=== PATIENT | female | born 1950 | race Hispanic/Latino ===

== ENCOUNTER 2017-03-04 18:40 | Emergency (ER) | payer MEDICARE ==
[2017-03-04 19:40] VITALS: RESP 16
--- NOTE | 2017-03-04 20:18 | ED PDOC ---
HPI: SOB/CHF/COPD Time Seen by Provider: 03/04/17 19:18 Chief Complaint (Nursing): Shortness Of Breath Chief Complaint (Provider): Shortness of Breath/Leg Swelling History Per: Patient History/Exam Limitations: no limitations Onset/Duration Of Symptoms: Days (1) Current Symptoms Are (Timing): Still Present Quality: "Pain" Associated Symptoms: Ankle/Leg Swelling Additional Complaint(s): Oswaldo Oconnell is a 66 y/o female, with a past medical history of anxiety and opiate addiction (currently enrolled in a Methadone clinic), presenting to the ER on 03/04/2017 wit bilateral leg swelling x1 day. Patient reports noticing her legs swell earlier today associated with intermittent shortness of breath and anxiety. She was advised by her Methadone clinic to have her kidneys evaluated for an unknown reason to her. Patient states she saw her primary doctor, Dr. Nguyen, who provided her with prescriptions for blood work which she never got performed. Past Medical History Reviewed: Historical Data, Nursing Documentation, Vital Signs Vital Signs: Last Vital Signs Temp 98.1 F 03/04/17 19:06 Pulse 113 H 03/04/17 19:06 Resp 16 03/04/17 19:39 BP 125/64 03/04/17 19:06 Pulse Ox 98 03/04/17 21:55 - Medical History PMH: Anxiety, Migraine, Seizures (last seizure 15 years ago) Denies: CAD - Surgical History Other surgeries: Exploratory Laproscopy - Family History Family History: States: Unknown Family Hx - Social History Current smoker - smoking cessation education provided: No Alcohol: None Drugs: Opiates ((+) former opiate addiction ) - Allergies Allergies/Adverse Reactions: Allergies Allergy/AdvReac Type Severity Reaction Status Date / Time amitriptyline [From Elavil] Allergy Mild RASH Verified 03/04/17 18:51 Review of Systems ROS Statement: Except As Marked, All Systems Reviewed And Found Negative Respiratory: Positive for: Shortness of Breath Musculoskeletal: Positive for: Other ((+) leg swelling ) Psych: Positive for: Anxiety Physical Exam - Reviewed Nursing Documentation Reviewed: Yes Vital Signs Reviewed: Yes - Physical Exam Appears: Positive for: Non-toxic, No Acute Distress Head Exam: Positive for: ATRAUMATIC, NORMOCEPHALIC Skin: Positive for: Normal Color. Negative for: Rash Eye Exam: Positive for: Normal appearance, EOMI, PERRL ENT: Positive for: Normal ENT Inspection. Negative for: Pharyngeal Erythema, Tonsillar Exudate, Tonsillar Swelling Neck: Positive for: Normal, Painless ROM, Supple Cardiovascular/Chest: Positive for: Regular Rate, Rhythm. Negative for: Murmur Respiratory: Positive for: Normal Breath Sounds. Negative for: Wheezing, Respiratory Distress Gastrointestinal/Abdominal: Positive for: Normal Exam, Soft. Negative for: Tenderness Extremity: Positive for: Normal ROM, Swelling ((+) 1+ edema around the ankles ) . Negative for: Tenderness, Deformity Neurologic/Psych: Positive for: Alert, Oriented. Negative for: Motor/Sensory Deficits - Laboratory Results Result Diagrams: 03/04/17 20:10 03/04/17 20:10 - ECG O2 Sat by Pulse Oximetry: 98 Medical Decision Making Medical Decision Makin:20 Initial Impression- 66 y/o female with mild foot swelling and shortness of breath Initial Plan- * EKG * BNP * CMP * Troponin * Urine Dip * CBC w/ differential * UA 21:54 Labs reviewed, shows no clinically significant abnormalities. Pt is stable for discharge at this time. Pt was advised to schedule a follow-up with her PMD within two days and additionally advised on leg elevation. Clinical Impression- Edema Documented by Tari Mcdermott, acting as a scribe for Werner Ramirez MD. All medical record entries made by the Scribe were at my direction and personally dictated by me. I have reviewed the chart and agree that the record accurately reflects my personal performance of the history, physical exam, medical decision making, and the department course for this patient. I have also personally directed, reviewed, and agree with the discharge instructions and disposition. Disposition - Clinical Impression Clinical Impression: Edema - Disposition Disposition: Routine/Home Disposition Time: 21:54 Condition: STABLE Instructions: Edema (ED)
[2017-03-04 20:20] LABS: RBC URINE < 1 /hpf (0-3); URINE BILIRUBIN NEGATIVE (NEGATIVE); URINE BLOOD NEGATIVE (NEGATIVE); URINE COLOR STRAW (YELLOW); URINE GLUCOSE (UA) NEG (Normal); URINE KETONE NEGATIVE (NEGATIVE); URINE LEUKOCYTE ESTERASE NEG Leu/uL (Negative); URINE PROTEIN NEGATIVE (NEGATIVE); URINE UROBILINOGEN 0.2-1.0 mg/dL (0.2-1.0); WBC URINE < 1 /hpf (0-5)
[2017-03-04 20:29] LABS: BASO % 0.2 % (0.0-2.0); EOS # 0.1 K/uL (0.0-0.7); EOS % 2.9 % (0.0-4.0); HEMATOCRIT 35.1 % (34.0-47.0); LYMPH # 0.9 K/uL (1.0-4.3); LYMPH % 18.7 % (20.0-40.0); MEAN CORPUSCULAR HEMOGLOBIN 32.6 pg (27.0-31.0); MEAN CORPUSCULAR HGB CONC 33.3 g/dL (33.0-37.0); MEAN PLATELET VOLUME 7.3 fl (7.2-11.7); MONO # 0.4 K/uL (0.0-0.8); MONO % 8.3 % (0.0-10.0); NEUT # 3.4 K/uL (1.8-7.0); NEUT % 69.9 % (50.0-75.0); NRBC % 0.1 % (0.0-0.0); RED CELL DISTRIBUTION WIDTH 13.1 % (11.5-14.5); WHITE BLOOD COUNT 4.9 K/uL (4.8-10.8)
[2017-03-04 21:12] LABS: ALB/GLOB RATIO 1.1 (1.0-2.1); ALKALINE PHOSPHATASE 58 U/L (38-126); ALT/SGPT 35 U/L (9-52); AST/SGOT 50 U/L (14-36); BILIRUBIN,TOTAL 0.2 mg/dl (0.2-1.3); BLOOD UREA NITROGEN 11 mg/dl (7-17); CALCIUM 8.9 mg/dL (8.4-10.2); CARBON DIOXIDE 32 mmol/L (22-30); CHLORIDE 99 mmol/L (98-107); GFR AFRICAN-AMERICAN > 60; GLUCOSE,RANDOM 87 mg/dL (65-105); POTASSIUM 3.5 MMOL/L (3.6-5.0); SODIUM 140 mmol/l (132-148); TOTAL PROTEIN 7.7 G/DL (6.3-8.2)
[2017-03-04 22:01] VITALS: BP 132/84; PULSE 83; TEMP 98; O2SAT 97
--- NOTE | 2017-03-05 17:41 | CARD ---
APPROVED REPORT EKG Measurement Heart [id number] AR [id number] <Conclusion> Sinus tachycardia Possible Left atrial enlargement Nonspecific ST and T wave abnormality Abnormal ECG
== END 2017-03-04 22:01 | disposition home or self-care (01) ==
LOC: H.ER 18:40
DX: R60.0 Localized edema (principal)

== ENCOUNTER 2017-11-22 08:48 | Emergency (ER) | payer MEDICARE ==
[2017-11-22 08:52] VITALS: BP 122/76; PULSE 86; O2SAT 98
[2017-11-22 08:59] VITALS: RESP 20; TEMP 98
--- NOTE | 2017-11-22 09:44 | ED PDOC ---
HPI: Trauma/Fall - HPI Time Seen by Provider: 11/22/17 09:05 Chief Complaint (Nursing): Upper Extremity Problem/Injury Chief Complaint (Provider): rib pain History Per: Patient History/Exam Limitations: no limitations Onset/Duration Of Symptoms: Sudden Onset Injury Occurred (Timing): Just Before Arrival Additional Complaint(s): 66 year old female with medical history of seizures, presents to the emergency department for an evaluation of right-sided rib pain sustained by hitting against 2-step ladder during a slip in her bathroom prior to arrival. She also reported subjective fever, shortness of breath and "clicking" when she breathes. Denied any nausea, vomiting, loss of consciousness or dizziness. PMD: Rafa Aguila MD Past Medical History Reviewed: Historical Data, Nursing Documentation, Vital Signs Vital Signs: Last Vital Signs Temp 98 F 11/22/17 08:56 Pulse 86 11/22/17 08:56 Resp 20 11/22/17 08:56 BP 122/76 11/22/17 08:56 Pulse Ox 98 11/22/17 11:21 - Medical History PMH: Anxiety, Migraine, Seizures (last seizure 15 years ago) Denies: CAD - Family History Family History: States: Unknown Family Hx - Social History Current smoker - smoking cessation education provided: No Alcohol: None Drugs: Denies - Home Medications Home Medications: Ambulatory Orders Medication Instructions Recorded Lidocaine 5% [Lidoderm] 1 patch TD DAILY #10 patch 11/22/17 - Allergies Allergies/Adverse Reactions: Allergies Allergy/AdvReac Type Severity Reaction Status Date / Time amitriptyline [From Elavil] Allergy Mild RASH Verified 03/04/17 18:51 Review of Systems ROS Statement: Except As Marked, All Systems Reviewed And Found Negative Constitutional: Positive for: Fever (subjective) Cardiovascular: Positive for: Other (right-sided rib pain) Respiratory: Positive for: Shortness of Breath (with clicking) Gastrointestinal: Negative for: Nausea, Vomiting, Abdominal Pain Neurological: Negative for: Dizziness, Other (LOC) Physical Exam - Reviewed Nursing Documentation Reviewed: Yes Vital Signs Reviewed: Yes - Physical Exam Appears: Positive for: Non-toxic, Uncomfortable Head Exam: Positive for: ATRAUMATIC, NORMAL INSPECTION, NORMOCEPHALIC Skin: Positive for: Normal Color Eye Exam: Positive for: Normal appearance, EOMI, PERRL Neck: Positive for: Normal, Painless ROM, Supple Cardiovascular/Chest: Positive for: Regular Rate, Rhythm, Other (right-sided 9th -10th rib tenderness without deformity) Respiratory: Positive for: Normal Breath Sounds. Negative for: Decreased Breath Sounds, Respiratory Distress Gastrointestinal/Abdominal: Positive for: Normal Exam, Soft. Negative for: Tenderness (RUQ) Back: Positive for: Normal Inspection. Negative for: L CVA Tenderness, R CVA Tenderness Extremity: Positive for: Normal ROM (upper/lower). Negative for: Tenderness ( lower bilaterally), Pedal Edema (bilateral), Deformity (bilateral) Neurologic/Psych: Positive for: Alert, Oriented. Negative for: Motor/Sensory Deficits - ECG O2 Sat by Pulse Oximetry: 98 (RA) Pulse Ox Interpretation: Normal Medical Decision Making Medical Decision Making: Initial Impression: Rib injury S/P fall Initial Plan: * Urine dipstick * Toradol 60mg IM * Xray rib (right) Time: 1109 --Xray rib (right) FINDINGS: RIGHT RIBS: No fracture or focal lesion visualized. LUNGS: Clear. Re- demonstrated is an azygos fissure. PLEURA: No pneumothorax or pleural fluid. CARDIOVASCULAR: Normal sized heart. No pulmonary vascular congestion. OTHER FINDINGS: Minor multilevel degenerative spondylosis of the thoracic spine. CT IMPRESSION: Unremarkable radiographs of the chest and right ribs. No right rib fracture. Scribe Attestation: Documented by Keshia Gregg, acting as a scribe for Cathi Lee MD. Provider Scribe Attestation: All medical record entries made by the Scribe were at my direction and personally dictated by me. I have reviewed the chart and agree that the record accurately reflects my personal performance of the history, physical exam, medical decision making, and the department course for this patient. I have also personally directed, reviewed, and agree with the discharge instructions and disposition. Disposition - Clinical Impression Clinical Impression: Contusion of rib on right side - Patient ED Disposition Is Patient to be Admitted: No Doctor Will See Patient In The: Office Counseled Patient/Family Regarding: Diagnosis, Need For Followup, Rx Given - Disposition Referrals: Corina Paulino [Outside] Disposition: Routine/Home Disposition Time: 12:12 Condition: STABLE Prescriptions: Lidocaine 5% [Lidoderm] 1 patch TD DAILY #10 patch Instructions: Bruised Rib (DC) Forms: [employer]ina Quiles (Surinamese) - POA Present On Arrival: Falls Or Trauma
--- NOTE | 2017-11-22 11:11 | RAD ---
PROCEDURE: Radiographs of the chest and right Ribs dated 11/22/2017. . HISTORY: Status post fall last night COMPARISON: Comparison made with prior radiographs chest 09/11/2011. TECHNIQUE: Frontal radiograph of the chest and multiple oblique radiographs of the right ribs were obtained. FINDINGS: RIGHT RIBS: No fracture or focal lesion visualized. LUNGS: Clear. Re- demonstrated is an azygos fissure. PLEURA: No pneumothorax or pleural fluid. CARDIOVASCULAR: Normal sized heart. No pulmonary vascular congestion. OTHER FINDINGS: Minor multilevel degenerative spondylosis of the thoracic spine. CT IMPRESSION: Unremarkable radiographs of the chest and right ribs. No right rib fracture.
== END 2017-11-22 12:25 | disposition home or self-care (01) ==
LOC: H.ER 08:48
DX: S20.211A Contusion of right front wall of thorax, initial encounter (principal); W19.XXXA Unspecified fall, initial encounter; Y92.002 Bathroom of unspecified non-institutional (private) residence as the place of occurrence of the external cause; F41.9 Anxiety disorder, unspecified; R56.9 Unspecified convulsions
CPT/HCPCS: 71101; 82948; 96372; 99283; J1885

== ENCOUNTER 2018-04-26 10:26 | Emergency (ER) | payer MEDICARE ==
[2018-04-26 10:37] VITALS: TEMP 99
[2018-04-26 10:38] VITALS: BMI 24.4
--- NOTE | 2018-04-26 11:14 | ED PDOC ---
HPI: Hypertension/Hypotension Time Seen by Provider: 04/26/18 10:39 Chief Complaint (Nursing): Palpitations Chief Complaint (Provider): Palpitations History Per: Patient History/Exam Limitations: no limitations Additional Complaint(s): Pt states she woke up with palpitations this AM and was afraid her BP was high so came to ED for evaluation. Also reports neck pain that is constant secondary to rheumatoid arthritis, was manipulated by Chiropractor 4 days ago without relief. Also c/o pain to both feet X 1 day. Past Medical History Reviewed: Nursing Documentation, Vital Signs Vital Signs: Last Vital Signs Temp 99 F 04/26/18 10:37 Pulse 90 04/26/18 10:37 Resp 18 04/26/18 11:01 BP 112/69 04/26/18 10:37 Pulse Ox 95 04/26/18 10:37 - Medical History PMH: Anxiety, HTN, Malignancy (Squamous cell), Migraine, Rheumatoid Arthritis, Seizures (last seizure 15 years ago) - Family History Family History: States: Unknown Family Hx - Social History Current smoker - smoking cessation education provided: No Alcohol: None Drugs: Other (Methadone) - Home Medications Home Medications: Ambulatory Orders Medication Instructions Recorded Lidocaine 5% [Lidoderm] 1 patch TD DAILY #10 patch 11/22/17 - Allergies Allergies/Adverse Reactions: Allergies Allergy/AdvReac Type Severity Reaction Status Date / Time amitriptyline [From Elavil] Allergy Mild RASH Verified 04/26/18 11:00 Review of Systems Constitutional: Negative for: Fever, Chills Eyes: Negative for: Vision Change Cardiovascular: Positive for: Palpitations. Negative for: Chest Pain Respiratory: Negative for: Cough, Shortness of Breath Gastrointestinal: Negative for: Nausea, Vomiting, Abdominal Pain, Diarrhea Genitourinary Female: Negative for: Dysuria Musculoskeletal: Positive for: Neck Pain, Foot Pain. Negative for: Shoulder Pain, Arm Pain, Back Pain Skin: Negative for: Rash, Lesions Neurological: Positive for: Headache. Negative for: Weakness, Numbness, Incoordination, Change in Speech, Confusion, Seizures, Altered Mental Status, Dizziness Physical Exam - Reviewed Nursing Documentation Reviewed: Yes Vital Signs Reviewed: Yes - Physical Exam Appears: Positive for: Well, No Acute Distress Head Exam: Positive for: ATRAUMATIC, NORMAL INSPECTION Skin: Positive for: Normal Color, Warm, Dry Eye Exam: Positive for: Normal appearance, EOMI, PERRL Neck: Positive for: Decreased ROM, Limited ROM, Trachea Midline, Pain On Movement Of Neck (TTP bilateral neck). Negative for: Painless ROM Cardiovascular/Chest: Positive for: Regular Rate, Rhythm Respiratory: Positive for: Normal Breath Sounds. Negative for: Rales, Rhonchi, Wheezing Gastrointestinal/Abdominal: Positive for: Normal Exam Back: Positive for: Normal Inspection Extremity: Positive for: Normal ROM, Capillary Refill (<2 sec). Negative for: Tenderness, Pedal Edema, Calf Tenderness, Deformity, Swelling Neurologic/Psych: Positive for: Alert, player manager II-XII, Oriented, Gait (Steady). Negative for: Motor/Sensory Deficits, Aphasia, Facial Droop - Laboratory Results Result Diagrams: 04/26/18 13:00 04/26/18 13:00 - ECG O2 Sat by Pulse Oximetry: 95 Medical Decision Making Medical Decision Makin yo female with acute on chronic neck pain and palpitations. - labs - EKG - CXR - CT head - CT C-spine 11:33 Date of service: 04/26/2018 HISTORY: Palpitations COMPARISON: Chest radiograph dated 11/22/2017. TECHNIQUE: Chest PA and lateral FINDINGS: LUNGS: No active pulmonary disease. PLEURA: No significant pleural effusion identified. No pneumothorax apparent. CARDIOVASCULAR: Atherosclerotic aortic calcifications. Cardiomediastinal silhouette within normal limits. OSSEOUS STRUCTURES: Unchanged. VISUALIZED UPPER ABDOMEN: Normal. OTHER FINDINGS: None. IMPRESSION: No active disease. 12:09 Date of service: 04/26/2018 PROCEDURE: CT HEAD WITHOUT CONTRAST. HISTORY: RUIZ COMPARISON: None available. TECHNIQUE: Axial computed tomography images were obtained through the head/brain without intravenous contrast. Radiation dose: Total exam DLP = 731.3 mGy-cm. This CT exam was performed using one or more of the following dose reduction techniques: Automated exposure control, adjustment of the mA and/or kV according to patient size, and/or use of iterative reconstruction technique. FINDINGS: HEMORRHAGE: No intracranial hemorrhage. BRAIN: No mass effect or edema. Atrophy. Chronic microvascular ischemic changes. VENTRICLES: Unremarkable. No hydrocephalus. CALVARIUM: Unremarkable. PARANASAL SINUSES: Unremarkable as visualized. Right middle turbinate jackelyn bullosa. No significant inflammatory changes. MASTOID AIR CELLS: Unremarkable as visualized. No inflammatory changes. OTHER FINDINGS: None. IMPRESSION: No acute intracranial pathology. Age-related changes. Disposition - Clinical Impression Clinical Impression: Palpitations, Chronic neck pain - Disposition Disposition: Routine/Home Disposition Time: 15:50 Condition: IMPROVED Additional Instructions: FOLLOW-UP WITH PMD WITHIN 2 DAYS FOR REEVALUATION. Instructions: Palpitations, Neck Pain, Chronic Pain (DC) Forms: [employer] (French)
--- NOTE | 2018-04-26 11:34 | RAD ---
Date of service: 04/26/2018 HISTORY: Palpitations COMPARISON: Chest radiograph dated 11/22/2017. TECHNIQUE: Chest PA and lateral FINDINGS: LUNGS: No active pulmonary disease. PLEURA: No significant pleural effusion identified. No pneumothorax apparent. CARDIOVASCULAR: Atherosclerotic aortic calcifications. Cardiomediastinal silhouette within normal limits. OSSEOUS STRUCTURES: Unchanged. VISUALIZED UPPER ABDOMEN: Normal. OTHER FINDINGS: None. IMPRESSION: No active disease.
[2018-04-26] MEDS ORDERED: Iohexol 300 100 ML IJ ONE (11:37)
--- NOTE | 2018-04-26 12:11 | CT ---
Date of service: 04/26/2018 PROCEDURE: CT HEAD WITHOUT CONTRAST. HISTORY: RUIZ COMPARISON: None available. TECHNIQUE: Axial computed tomography images were obtained through the head/brain without intravenous contrast. Radiation dose: Total exam DLP = 731.3 mGy-cm. This CT exam was performed using one or more of the following dose reduction techniques: Automated exposure control, adjustment of the mA and/or kV according to patient size, and/or use of iterative reconstruction technique. FINDINGS: HEMORRHAGE: No intracranial hemorrhage. BRAIN: No mass effect or edema. Atrophy. Chronic microvascular ischemic changes. VENTRICLES: Unremarkable. No hydrocephalus. CALVARIUM: Unremarkable. PARANASAL SINUSES: Unremarkable as visualized. Right middle turbinate jackelyn bullosa. No significant inflammatory changes. MASTOID AIR CELLS: Unremarkable as visualized. No inflammatory changes. OTHER FINDINGS: None. IMPRESSION: No acute intracranial pathology. Age-related changes.
[2018-04-26 13:21] LABS: BASO % 0.9 % (0.0-2.0); EOS # 0.2 K/uL (0.0-0.7); EOS % 3.9 % (0.0-4.0); HEMOGLOBIN 11.8 g/dL (12.0-16.0); LYMPH # 1.3 K/uL (1.0-4.3); MEAN CELL VOLUME 99.6 fl (81.0-99.0); MEAN CORPUSCULAR HEMOGLOBIN 33.8 pg (27.0-31.0); MEAN CORPUSCULAR HGB CONC 33.9 g/dL (33.0-37.0); MEAN PLATELET VOLUME 7.5 fl (7.2-11.7); MONO # 0.3 K/uL (0.0-0.8); MONO % 7.8 % (0.0-10.0); NEUT # 2.2 K/uL (1.8-7.0); NEUT % 54.4 % (50.0-75.0); NRBC % 0.1 % (0.0-0.0); RBC 3.5 Mil/uL (3.80-5.20); RED CELL DISTRIBUTION WIDTH 13.5 % (11.5-14.5)
[2018-04-26 13:26] LABS: PROTHROMBIN TIME 10.6 Seconds (9.8-13.1)
[2018-04-26 13:29] LABS: PARTIAL THROMBOPLASTIN TIME 30.2 Seconds (25.6-37.1)
[2018-04-26 13:40] LABS: ALB/GLOB RATIO 1.1 (1.0-2.1); ALBUMIN 3.9 g/dL (3.5-5.0); GFR AFRICAN-AMERICAN > 60; GFR NON-AFRICAN AMERICAN 55
[2018-04-26 13:41] LABS: ALT/SGPT 29 U/L (9-52); AST/SGOT 47 U/L (14-36); BLOOD UREA NITROGEN 12 mg/dl (7-17)
[2018-04-26] MEDS ORDERED: Iodixanol 320 MG/ML 100 ML BOTTLE IV ONE (14:05)
[2018-04-26] MEDS ORDERED: Sodium Chloride 0.9% 50 ML IV ONE (14:05)
--- NOTE | 2018-04-26 15:21 | CT ---
Date of service: 04/26/2018 PROCEDURE: CT Chest with contrast (Pulmonary Angiogram) HISTORY: Palpitations COMPARISON: Correlation is made to CT scan of the chest, abdomen and pelvis dated 07/04/2011. TECHNIQUE: Axial computed tomography images were obtained of the chest in the pulmonary arterial phase of enhancement. Coronal and sagittal reformatted images were created and reviewed. Intravenous contrast dose: 99 mL Visipaque 320 Radiation dose: Total exam DLP = 541.4 mGy-cm. This CT exam was performed using one or more of the following dose reduction techniques: Automated exposure control, adjustment of the mA and/or kV according to patient size, and/or use of iterative reconstruction technique. FINDINGS: PULMONARY ARTERIES: Unremarkable. No pulmonary embolism. AORTA: No acute findings. No thoracic aortic aneurysm. LUNGS: Unremarkable. No nodule, mass or pulmonary consolidation. PLEURAL SPACES: Unremarkable. No effusion or pneumothorax. HEART: Unremarkable. No cardiomegaly. No significant pericardial effusion. LYMPH NODES: No lymphadenopathy. BONES, CHEST WALL: Unremarkable. No fracture or destructive lesion OTHER FINDINGS: Small-caliber left brachiocephalic vein with multiple mediastinal collaterals draining into the SVC. Prominent azygos arch with interposed azygos lobe. IMPRESSION: Unremarkable CT pulmonary angiogram. No pulmonary embolus.
--- NOTE | 2018-04-26 15:23 | CT ---
Date of service: 04/26/2018 PROCEDURE: CT Cervical Spine without contrast HISTORY: Neck manipulation, pain COMPARISON: None available. TECHNIQUE: Axial computed tomography images were obtained of the cervical spine without the use of intravenous contrast. Coronal and sagittal reformatted images were created and reviewed. Radiation dose: Total exam DLP = 541.4 mGy-cm. This CT exam was performed using one or more of the following dose reduction techniques: Automated exposure control, adjustment of the mA and/or kV according to patient size, and/or use of iterative reconstruction technique. FINDINGS: VERTEBRAE: No fracture. Multilevel disc osteophyte complexes. Normal alignment. No destructive bony lesion. DISCS/SPINAL CANAL/NEURAL FORAMINA: Multilevel disc space narrowing. PARASPINAL SOFT TISSUES: Unremarkable. OTHER FINDINGS: None. IMPRESSION: No acute fracture. Multilevel degenerative changes.
[2018-04-26 16:02] VITALS: BP 122/70; PULSE 82; RESP 16
[2018-04-27 15:29] VITALS: O2SAT 95
--- NOTE | 2018-04-27 18:59 | CARD ---
APPROVED REPORT Date of service: 04/26/2018 EKG Measurement Heart [id number] ME [id number] <Conclusion> Normal sinus rhythm Cannot rule out Anterior infarct, age undetermined Abnormal ECG
== END 2018-04-26 15:59 | disposition home or self-care (01) ==
LOC: H.ER 10:26
DX: R00.2 Palpitations (principal); M54.2 Cervicalgia; G89.29 Other chronic pain; I10 Essential (primary) hypertension; M06.9 Rheumatoid arthritis, unspecified
CPT/HCPCS: 70450; 71046; 71275; 72126; 80053; 84443; 84484; 85025; 85378; 85610; 85730; 93005; 99283; Q9967

== ENCOUNTER 2018-12-01 13:41 | Emergency (ER) | payer MEDICARE ==
[2018-12-01 13:41] VITALS: BMI 24.4
--- NOTE | 2018-12-01 16:15 | ED PDOC ---
HPI: Psych/Substance Abuse Time Seen by Provider: 12/01/18 13:55 Chief Complaint (Nursing): Psychiatric Evaluation Chief Complaint (Provider): Crisis evaluation History Per: Patient Additional Complaint(s): 67yo female with history of anxiety, rectal cancer s/p surgery, hypertension, comes to ER requesting a medication refill. Patient states she takes lorazepam and was prescribed it by her PMD Dr. Aguila who recently retired; patient began seeing a new PMD who informed her she needed to be evalauated by a psychiatrist prior to re-filling the prescription. Patient states she normally takes 2mg BID but started weaning herself down for the past 3 days and last took half a pill yesterday. She is concerned about seizures as she had one about 20 years ago after taking fioricet; patient denies any history of benzo-withdrawal siezures. She states she lives alone and is concerned she will have an unwitnessed seizures. She reports feeling anxious but denies any chest pain, shortness of breath. Past Medical History Reviewed: Historical Data, Nursing Documentation, Vital Signs Vital Signs: Last Vital Signs Temp 97 F L 12/01/18 13:52 Pulse 79 12/01/18 13:52 Resp 16 12/01/18 13:52 BP 108/71 12/01/18 13:52 Pulse Ox 96 12/01/18 13:52 - Medical History PMH: Anxiety, HTN, Malignancy (Squamous cell), Migraine, Rheumatoid Arthritis, Seizures (last seizure 15 years ago) - Surgical History Other surgeries: colon surgery - Family History Family History: States: Unknown Family Hx - Immunization History Hx Tetanus Toxoid Vaccination: No Hx Influenza Vaccination: No Hx Pneumococcal Vaccination: No - Home Medications Home Medications: Ambulatory Orders Medication Instructions Recorded Lidocaine 5% [Lidoderm] 1 patch TD DAILY #10 patch 11/22/17 - Allergies Allergies/Adverse Reactions: Allergies Allergy/AdvReac Type Severity Reaction Status Date / Time amitriptyline [From Elavil] Allergy Mild RASH Verified 04/26/18 11:00 Review of Systems Constitutional: Negative for: Fever, Chills Cardiovascular: Negative for: Chest Pain Respiratory: Negative for: Shortness of Breath Psych: Positive for: Anxiety. Negative for: Suicidal ideation, Other (hallucinations) Physical Exam - Physical Exam Appears: Positive for: Uncomfortable Head Exam: Positive for: ATRAUMATIC, NORMAL INSPECTION, NORMOCEPHALIC Skin: Positive for: Normal Color Eye Exam: Positive for: EOMI, PERRL Cardiovascular/Chest: Positive for: Regular Rate, Rhythm. Negative for: Tachycardia Respiratory: Positive for: Normal Breath Sounds. Negative for: Respiratory Distress Neurological/Psych: Positive for: Awake, Alert, Oriented (x 3), Mood/Affect (normal mood and affect; normal speech; no flight of ideas.), Other (anxious appearing) - ECG O2 Sat by Pulse Oximetry: 96 (RA) Pulse Ox Interpretation: Normal Medical Decision Making Medical Decision Makinyo female presents for medication refill. Plan: -- Crisis evaluation 1616 Patient seen and evaluated by crisis team, and per Dr. Mcguire, patient is stable for discharge home. Diagnosis: Anxiety Scribe Attestation: Documented by Sun De Jesus acting as a scribe for MARGE Aparicio. Provider Scribe Attestation: All medical record entries made by the Scribe were at my direction and personally dictated by me. I have reviewed the chart and agree that the record accurately reflects my personal performance of the history, physical exam, medical decision making, and the department course for this patient. I have also personally directed, reviewed, and agree with the discharge instructions and disposition. Disposition - Clinical Impression Clinical Impression: Anxiety - Patient ED Disposition Is Patient to be Admitted: No - Disposition Disposition: Routine/Home Disposition Time: 16:16 Condition: STABLE Additional Instructions: Follow up with the resources given to you by our mental health counselors. Return to ER if your symptoms worsen. Instructions: Anxiety, Adult (DC) Forms: [employer] (Turkmen) Print Language: YAKUT
[2018-12-01 18:29] VITALS: BP 128/76; PULSE 78; RESP 18; TEMP 98
[2018-12-02 02:28] VITALS: O2SAT 96
== END 2018-12-01 18:28 | disposition home or self-care (01) ==
LOC: H.ER 13:41
DX: F41.9 Anxiety disorder, unspecified (principal)